=== PATIENT | male | born 1985 | race African-American/Black ===

== ENCOUNTER 2021-03-20 20:48 | Emergency (ER) | payer OTHER ==
[~2021-03-20] VITALS: Ht 175.3 cm; Wt 68.0 kg
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
[2021-03-20 20:50] VITALS: BP 158/83
== END 2021-03-20 20:58 | disposition left against medical advice (07) ==
LOC: ER 20:48
DX: R45.1 Restlessness and agitation (principal); F99 Mental disorder, not otherwise specified